=== PATIENT | male | born 1970 ===

== ENCOUNTER 2017-07-27 23:46 | Emergency (ER) | payer SELFPAY ==
[2017-07-28 00:07] VITALS: RESP 20; O2SAT 98
--- NOTE | 2017-07-28 00:46 | C.PDOC ---
History Of Present Illness 46 year old male presents to the ED c/o right sided neck pain that worsens with movement and radiated toward his right arm for the past 4 days. Patient reports he had similar episodes in the past but this one is more severe. Patient took OTC motrin at home with minimal relief. Patient denies injury, fall, trauma, CP , SOB, dizziness, headache, visual changes, weakness, numbness. Time Seen by Provider: 07/28/17 00:21 Chief Complaint (Nursing): Upper Extremity Problem/Injury History Per: Patient History/Exam Limitations: no limitations Onset/Duration Of Symptoms: Days (4) Current Symptoms Are (Timing): Still Present Quality: "Pain" Exacerbating Factor(s): Movement Recent travel outside of the [place]: No Additional History Per: Patient Past Medical History Reviewed: Historical Data, Nursing Documentation, Vital Signs Vital Signs: Last Vital Signs Temp 98 F 07/28/17 01:45 Pulse 82 07/28/17 01:45 Resp 20 07/28/17 01:45 BP 132/78 07/28/17 01:45 Pulse Ox 98 07/28/17 01:45 - Medical History PMH: No Chronic Diseases Surgical History: No Surg Hx Family History: States: Unknown Family Hx - Social History Hx Alcohol Use: No Hx Substance Use: No - Immunization History Hx Tetanus Toxoid Vaccination: No Hx Influenza Vaccination: No Hx Pneumococcal Vaccination: No Review Of Systems Constitutional: Negative for: Fever, Chills Eyes: Negative for: Vision Change Cardiovascular: Negative for: Chest Pain Respiratory: Negative for: Shortness of Breath Gastrointestinal: Negative for: Nausea, Vomiting Musculoskeletal: Positive for: Neck Pain, Arm Pain Skin: Negative for: Rash Physical Exam - Physical Exam Appears: Non-toxic, No Acute Distress Skin: Normal Color, Warm, Dry Head: Atraumatic, Normacephalic Eye(s): bilateral: Normal Inspection, PERRL, EOMI Ear(s): Bilateral: Normal Oral Mucosa: Moist Throat: Normal, No Erythema, No Exudate Neck: Normal ROM, No Midline Cervical Tenderness, Paracervical Tenderness ( right ), Supple, Other (+ muscle spasm) Extremity: Capillary Refill (< 2 seconds) Extremity: Bilateral: Atraumatic, Normal Color And Temperature, Normal ROM Pulses: Left Radial: Normal, Right Radial: Normal Neurological/Psych: Oriented x3, Normal Speech, Normal Motor, Normal Sensation Gait: Steady ED Course And Treatment O2 Sat by Pulse Oximetry: 98 (ON RA) Pulse Ox Interpretation: Normal Progress Note: Plan: - Toradol 30 mg IM. - Valium 10 mg PO. On reassessment, patient is resting comfortably, and is in no acute distress. Patient was instructed to follow up with physician/clinic in 1-2 days for further evaluation. Disposition Counseled Patient/Family Regarding: Diagnosis, Need For Followup - Disposition Disposition: HOME/ ROUTINE Disposition Time: 00:46 Condition: STABLE Additional Instructions: Apply warm compress to area Take medications as directed Continue PO motrin 600mg every 6 hr Follow up with PMD Return to ER if worse Prescriptions: diaZEpam [Valium] 5 mg PO TID #14 tab Instructions: Neck Sprain (DC) Forms: [employer] (Libyan) Print Language: AUSTRIAN - Clinical Impression Clinical Impression: Sprain, neck - PA / TECH INTERN / Resident Statement MD/DO has reviewed & agrees with the documentation as recorded. - Scribe Statement The provider has reviewed the documentation as recorded by the Scribe Juaquin Zelaya All medical record entries made by the Sheyibtrey were at my direction and personally dictated by me. I have reviewed the chart and agree that the record accurately reflects my personal performance of the history, physical exam, medical decision making, and the department course for this patient. I have also personally directed, reviewed, and agree with the discharge instructions and disposition.
[2017-07-28 01:47] VITALS: BP 132/78; PULSE 82; TEMP 98
== END 2017-07-28 01:44 | disposition home or self-care (01) ==
LOC: C.ER 23:46
DX: S13.4XXA Sprain of ligaments of cervical spine, initial encounter (principal); X58.XXXA Exposure to other specified factors, initial encounter
CPT/HCPCS: 96372; 99283; J1885

== ENCOUNTER 2017-09-18 16:56 | Emergency (ER) | payer SELFPAY ==
[2017-09-18 17:14] VITALS: BP 118/72; PULSE 82; RESP 18; TEMP 98.3; O2SAT 99
--- NOTE | 2017-09-18 18:05 | C.PDOC ---
History Of Present Illness 46 y/o male presents to ED with complaints of fulness muffled hearing and pain to left ear for 2 days. Patient also complains of right shoulder and upper back pain for 2 months, states he was given muscle relaxant by PMD ran out. Patient denies numbness, weakness, UTI symptoms or headache. Time Seen by Provider: 09/18/17 17:29 Chief Complaint (Nursing): Medical Clearance History Per: Patient History/Exam Limitations: no limitations Onset/Duration Of Symptoms: Days Current Symptoms Are (Timing): Still Present Past Medical History Reviewed: Historical Data, Nursing Documentation, Vital Signs Vital Signs: Last Vital Signs Temp 98.3 F 09/18/17 17:08 Pulse 82 09/18/17 17:08 Resp 18 09/18/17 17:08 BP 118/72 09/18/17 17:08 Pulse Ox 99 09/18/17 18:44 - Medical History PMH: No Chronic Diseases Surgical History: No Surg Hx Family History: States: No Known Family Hx - Social History Hx Alcohol Use: No Hx Substance Use: No - Immunization History Hx Tetanus Toxoid Vaccination: No Hx Influenza Vaccination: No Hx Pneumococcal Vaccination: No Review Of Systems Constitutional: Negative for: Fever, Chills ENT: Positive for: Ear Pain Musculoskeletal: Positive for: Shoulder Pain, Back Pain Skin: Negative for: Rash Neurological: Negative for: Weakness, Numbness Physical Exam - Physical Exam Appears: Non-toxic, No Acute Distress Skin: Warm, Dry, No Rash Head: Atraumatic, Normacephalic Eye(s): bilateral: Normal Inspection Ear(s): Left: TM Erythema (with fluid), Right: Normal Oral Mucosa: Moist Throat: Normal, No Erythema, No Exudate Neck: Supple Cardiovascular: Rhythm Regular Respiratory: Normal Breath Sounds, No Rales, No Rhonchi, No Wheezing Back: No CVA Tenderness, Muscle Spasm, Other (Right trapezius muscle tenderness) Neurological/Psych: Oriented x3, Normal Speech, Normal Motor, Normal Sensation ED Course And Treatment O2 Sat by Pulse Oximetry: 99 (RA) Pulse Ox Interpretation: Normal Medical Decision Making Medical Decision Making: Impression: ear pain, shoulder Plan: * Amoxicillin * Toradol Progress: Patient remained afebrile and in no distress. Patient reports pain improved. He is stable for discharge. Disposition Counseled Patient/Family Regarding: Diagnosis, Need For Followup, Rx Given - Disposition Referrals: Hakan Pfeiffer MD [Medical Doctor] - Disposition: HOME/ ROUTINE Disposition Time: 17:59 Condition: GOOD Additional Instructions: Follow up with your primary medical doctor or clinic in 2-5 days for further evaluation. Take medications as prescribed. Return to the emergency department at any time if symptoms persist or worsen. Prescriptions: Amoxicillin 875 mg PO BID #14 tablet Cyclobenzaprine [Cyclobenzaprine HCl] 10 mg PO TID #21 tab Ibuprofen [Motrin] 600 mg PO Q8 #30 tab Instructions: Ear Infections (Otitis Media) (DC), Muscle Spasms (DC) Print Language: PANAMANIAN - POA Present On Arrival: None - Clinical Impression Clinical Impression: Otitis media, Muscle spasm of back - PA / LACQUER POLISHER / Resident Statement MD/DO has reviewed & agrees with the documentation as recorded. - Scribe Statement The provider has reviewed the documentation as recorded by the Sheyibtrey Troy All medical record entries made by the Sheyibtrey were at my direction and personally dictated by me. I have reviewed the chart and agree that the record accurately reflects my personal performance of the history, physical exam, medical decision making, and the department course for this patient. I have also personally directed, reviewed, and agree with the discharge instructions and disposition.
== END 2017-09-18 18:10 | disposition home or self-care (01) ==
LOC: C.ER 16:56
DX: H66.92 Otitis media, unspecified, left ear (principal); M62.830 Muscle spasm of back
CPT/HCPCS: 96372; 99283; J1885